=== PATIENT | female | born 1950 | race Caucasian/White ===

== ENCOUNTER 2017-01-27 05:57 | Day surgery (SDC) | payer OTHER ==
[~2017-01-27] VITALS: Ht 158.8 cm; Wt 74.5 kg
[2017-01-27] VITALS (18 sets, daily range): BP systolic 79–160; BP diastolic 45–74; PULSE 53–69; RESP 12–23; TEMP 97.3–98.1; O2SAT 93–100; Ht 158.8 cm; Wt 74.5 kg
[~2017-01-27 05:57] MED LIST: ACET-732 PO; AMLO5TAB4 PO; ASPI-558 PO; CALC-586 PO; CETI10TA56 PO; FISH1CAP29 PO; LOSA100T44 PO; MELO7.5T12 PO; MULT-806 PO; NIAC500T74 PO; PITA2TAB PO; UBID100T7 PO
--- OUTSIDE RECORDS SUMMARY | 2017-01-27 06:07 | XMS REPORT | Continuity of Care Document ---
Author Author [facility] Organization [facility] Address Unknown Phone Unavailable Support Name Relationship Address Phone PEPE GIVENS Next Of Kin [address] [place] [address] Unavailable Insurance Providers Payer Name Policy Number Subscriber Name Relationship [employer] [id number] Carie Givens 20 Self Problems No Known Problems or Medical conditions. Family History History Response Recorded Date/Time HX Cerebrovascular Accident N 05/20/13 8:20pm Hx Seizures N 05/20/13 8:20pm Hx Angina N 08/01/10 11:00am Hx Congestive Heart Failure N 05/20/13 8:20pm Hx Heart Attack N 05/20/13 8:20pm Hx Hypertension Y 05/20/13 8:20pm Hx Rheumatic Fever N 08/01/10 11:00am Hx Chronic Obstructive Pulmonary Disease (COPD) N 05/20/13 8:20pm Hx Diabetes N 05/20/13 8:20pm Hx Cancer N 05/20/13 8:20pm Hx MRSA N 05/20/13 8:20pm HX of Reproductive Surgeries Y C-SEC; LUX/BSO/APPY 05/20/13 8:20pm HX of Genitourinary Surgeries Y SEVERAL CYSTO'S; SLT 05/20/13 8:20pm Social History History Response Recorded Date/Time Smoking Status Never smoker 05/20/13 8:20pm Hx Substance Use N 08/01/10 11:00am Hx Alcohol Use N 08/01/10 11:00am Allergies, Adverse Reactions, Alerts Allergen Type Severity Reaction Last Updated rosuvastatin calcium Adverse Reaction Mild ACHING 06/28/09 simvastatin Allergy 05/18/13 Medications Medication Dose Units Route Sig Qty Days Estradiol (Climara 0.1 Mg) 1 Patch.wk TD Acetaminophen (Tylenol) 1 - 2 Tab PO PRN Aspirin (Aspir 81) 81 Mg PO DAILY Losartan Potassium 50 Mg PO DAILY Pitavastatin Calcium (Livalo) 2 Mg PO HS Cetirizine Hcl (Zyrtec) 5 Mg PO PRN Calcium Carbonate/Vitamin D3 (Calcium + D 600 Mg Tablet) 1 Tab PO DAILY Fish Oil/[place]-3 Fatty Acids (Fish Oil 1,000 Mg Capsule) 2 Cap PO BID Multivitamins (Multivitamin) 1 Tab PO DAILY Ubidecarenone (Co Q-10) 100 Mg PO BID Niacin 500 Mg PO DAILY Pravastatin Sodium 20 Mg PO DAILY Losartan Potassium (Cozaar) 25 Mg PO DAILY Immunizations Name Given Type Hx Influenza Vaccination Y 10/12 H Hx Pneumococcal Vaccination N H Response Recorded Date/Time Status not known Unknown Results Test Date Result Interp. Ref. Range Alanine Aminotransferase (ALT/SGPT) June 03, 2013 8:15am 29 U/L N 9-52 Albumin June 03, 2013 8:15am 4.1 G/DL N 3.5-5.0 Albumin/Globulin Ratio June 03, 2013 8:15am 1.3 RATIO N 1.1-2.2 Alkaline Phosphatase June 03, 2013 8:15am 57 U/L N 38-126 Anion Gap June 03, 2013 8:15am 14 MEQ/L N 5-15 Aspartate Amino Transf (AST/SGOT) June 03, 2013 8:15am 23 U/L N 14-36 BUN/Creatinine Ratio June 03, 2013 8:15am 17 RATIO N 6-26 Basophils # (Auto) May 22, 2013 8:25am 0.1 T/MM3 N 0-0.2 Basophils (%) (Auto) May 22, 2013 8:25am 0.7 % N 0-2 Blood Urea Nitrogen June 03, 2013 8:15am 15.0 MG/DL N 7-17 C-Reactive Protein June 03, 2013 8:15am 7.4 MG/L N 0-9 Calcium Level June 03, 2013 8:15am 9.4 MG/DL N 8.4-10.2 Calculated Osmolality June 03, 2013 8:15am 278 MOSM/KG N 261-280 Carbon Dioxide Level June 03, 2013 8:15am 25 MEQ/L N 22-30 Chloride Level June 03, 2013 8:15am 104 MEQ/L N 98-107 Creatinine June 03, 2013 8:15am 0.9 MG/DL N 0.7-1.2 Eosinophils # (Auto) May 22, 2013 8:25am 0.2 T/MM3 N 0-0.5 Eosinophils # (Manual) June 03, 2013 8:15am 0.1 T/MM3 N 0-0.5 Eosinophils % (Manual) June 03, 2013 8:15am 1.0 % N 0-4 Eosinophils (%) (Auto) May 22, 2013 8:25am 2.8 % N 0-4 Erythrocyte Sedimentation Rate June 03, 2013 8:15am 17 MM/HR N 0-20 Globulin June 03, 2013 8:15am 3.2 G/DL N 2.4-3.6 Glomerular Filtration Rate Calc June 03, 2013 8:15am 64 - Glucose Level June 03, 2013 8:15am 134 MG/DL H 65-110 Hematocrit June 03, 2013 8:15am 38.6 % N 36-46 Hemoglobin June 03, 2013 8:15am 12.7 GM/DL N 12-16 Immature Granulocyte # (Auto) May 22, 2013 8:25am 0.00 T/MM3 N 0.00-0.03 Immature Granulocyte % (Auto) May 22, 2013 8:25am 0.0 % N 0.0-0.5 Lymphocytes # (Auto) May 22, 2013 8:25am 1.4 T/MM3 N 1-4.8 Lymphocytes # (Manual) June 03, 2013 8:15am 1.3 T/MM3 N 1-4.8 Lymphocytes % (Manual) June 03, 2013 8:15am 21.0 % L 23-45 Lymphocytes (%) (Auto) May 22, 2013 8:25am 20.3 % L 23-45 Mean Corpuscular Hemoglobin June 03, 2013 8:15am 28.5 UUG N 26-34 Mean Corpuscular Hemoglobin Concent June 03, 2013 8:15am 32.9 GM/DL N 31- 37 Mean Corpuscular Volume June 03, 2013 8:15am 86.7 UM3 N 80-100 Mean Platelet Volume June 03, 2013 8:15am 10.5 UM3 N 9.4-12.4 Monocytes # (Auto) May 22, 2013 8:25am 0.6 T/MM3 N 0-0.8 Monocytes # (Manual) June 03, 2013 8:15am 0.3 T/MM3 N 0-0.8 Monocytes % (Manual) June 03, 2013 8:15am 5.0 % N 0-9.0 Monocytes (%) (Auto) May 22, 2013 8:25am 8.3 % N 0-9.0 Neutrophils # (Auto) May 22, 2013 8:25am 4.6 T/MM3 N 1.8-7.7 Neutrophils # (Manual) June 03, 2013 8:15am 4.4 T/MM3 N 1.8-7.7 Neutrophils % (Manual) June 03, 2013 8:15am 73.0 % H 33-66 Neutrophils (%) (Auto) May 22, 2013 8:25am 67.9 % H 33-66 Platelet Count June 03, 2013 8:15am 352 T/MM3 N 130-400 Potassium Level June 03, 2013 8:15am 3.6 MEQ/L N 3.6-5 RDW Standard Deviation June 03, 2013 8:15am 39.6 FL N 36.9-50.2 Red Blood Count June 03, 2013 8:15am 4.45 M/MM3 N 4.00-5.20 Sodium Level June 03, 2013 8:15am 143 MEQ/L N 134-144 Total Bilirubin June 03, 2013 8:15am 0.40 MG/DL N 0.20-1.30 Total Protein June 03, 2013 8:15am 7.3 G/DL N 6.3-8.2 Urine Bacteria May 18, 2013 11:45am Trace H - Urine Bilirubin May 18, 2013 11:45am Negative - Urine Blood May 18, 2013 11:45am 1+ H - Urine Collection Type May 18, 2013 11:45am Voided-not cc-midstr - Urine Color May 18, 2013 11:45am Yellow - Urine Culture Indicated May 18, 2013 11:45am Cult not indicated - Urine Glucose (UA) May 18, 2013 11:45am Negative - Urine Ketones May 18, 2013 11:45am Negative - Urine Leukocyte Esterase May 18, 2013 11:45am Negative - Urine Nitrite May 18, 2013 11:45am Negative - Urine Protein May 18, 2013 11:45am Negative - Urine RBC May 18, 2013 11:45am 0-1 /HPF - Urine Specific [place] May 18, 2013 11:45am 1.005 L - Urine Squamous Epithelial Cells May 18, 2013 11:45am None seen - Urine Turbidity May 18, 2013 11:45am Clear - Urine Urobilinogen May 18, 2013 11:45am Normal EU/DL - Urine WBC May 18, 2013 11:45am None seen /HPF - Urine pH May 18, 2013 11:45am 7.0 - Vancomycin Level Trough May 31, 2013 8:10am 16.27 UG/ML N 15-20 White Blood Count June 03, 2013 8:15am 6.0 T/MM3 N 4.5-11.0 Procedures Procedure Code Date CYSTOSCOPY AND TREATMENT 36491 07/01/09 CYSTOSCOPY AND TREATMENT 32970 08/04/10 VENOUS CATHETERIZATION NEC 38.93 05/19/13 Blood Culture 05/18/13 Gram Stain 05/16/13 Encounters Encounter Location Date/Time Discharged Inpatient [facility] 05/18/13 9:52am
--- OUTSIDE RECORDS SUMMARY | 2017-01-27 06:07 | XMS REPORT | Continuity of Care Document ---
Author Author [facility] Organization [facility] Address Unknown Phone Unavailable Care Team Providers Care Seat Cover Cutter Name Role Phone MAY TREJO DO Primary Care Physician [phone] Insurance Providers Guarantor Carie Givens Address [address] [place] [address] Email [email or web address] [employer] [facility] Policy Number [id number] Subscriber's Name ThuanCarie Relationship 20 Self Effective Date 88 Chief Complaint and Reason for Visit Chief Complaint Skin Rash/Abscess/Injury Reason for Visit Cellulitis of right middle finger Problems Active Problems Medical Problem Onset Date Status Cellulitis of right middle finger Unknown Acute Medications Current Home Medications Medication Dose Units Route Directions Days Qty Instructions Start Date Acetaminophen (Tylenol) 500 Mg Tablet 1-2 Tab Oral As Needed 09/20 Amlodipine Besylate (Norvasc) 5 Mg Tablet 5 Mg Oral Daily Aspirin (Aspir 81) 81 Mg Tablet. 81 Mg Oral Daily 05/18/13 Calcium Carbonate/Vitamin D3 (Calcium + D 600 Mg Tablet) 1 Tab Tablet 1 Tab Oral Daily 08/04/10 Cetirizine Hcl (Zyrtec) 10 Mg Tablet 5 Mg Oral As Needed 08/04/10 Clindamycin Hcl 300 Mg Capsule 1 Cap Oral Four Times Daily 10 Days 40 Capsule TAKE WITH A FULL GLASS OF WATER TO AVOID ESOPHAGEAL IRRITATION. Estradiol (Climara 0.1 Mg) 1 Patch.wk Patch.tdwk 1 Patch.wk Transderm 05/18/13 Fish Oil/[place]-3 Fatty Acids (Fish Oil 1,000 Mg Capsule) 1 Cap Capsule 2 Cap Oral Twice A Day 08/01/10 Losartan Potassium 100 Mg Tablet 50 Mg Oral Daily 05/18/13 Meloxicam (Mobic) 7.5 Mg Tablet 10/02/16 Multivitamins (Multivitamin) 1 Tab Tablet 1 Tab Oral Daily Niacin 500 Mg Tablet 500 Mg Oral Daily 08/04/10 Pitavastatin Calcium (Livalo) 2 Mg Tablet 2 Mg Oral Bedtime 05/18 Ubidecarenone (Co Q-10) 100 Mg Capsule 100 Mg Oral Twice A Day Past Home Medications Medication Directions Ordered Status Ciprofloxacin Hcl (Cipro) 500 Mg Tablet, 500 Mg Oral Twice A Day 07/01/09 Discontinued Losartan Potassium (Cozaar) 25 Mg Tablet, 25 Mg Oral Daily 08/04/10 Discontinued Pravastatin Sodium 20 Mg Tablet, 20 Mg Oral Daily 08/04/10 Discontinued Red Yeast Rice Extract (Red Yeast Rice) 600 Mg Capsule, 600 Mg Oral Twice A Day 07/01/09 Discontinued Social History Social History Problem Response Recorded Date/Time Onset Date Status Chewing Tobacco Status No 11/09/2013 10:41am Not Applicable Not Applicable Hx Substance Use No 11/09/2013 10:41am Not Applicable Not Applicable Hx Alcohol Use No 11/09/2013 10:41am Not Applicable Not Applicable Has the pt used tobacco in the last 12 months No 11/09/2013 10:41am Not Applicable Not Applicable Hospital Discharge Instructions No hospital discharge instructions. Plan of Care Discharge Date 10/02/16 4:30pm Disposition 01 DISCHARGED HOME, SELF-CARE Condition at Discharge Stable Instructions/Education Provided Cellulitis Prescriptions See Medication Section Referrals MAY TREJO DO Address: [address] [place] [phone] Additional Instructions/Education Warm soaks to finger three times a day until healed. Follow up with Dr. Trejo on Wednesday if not improving. ER if worsening. Functional Status No functional status results. Allergies, Adverse Reactions, Alerts Allergen Type Severity Reaction Status Last Updated rosuvastatin calcium Adverse Reaction Mild ACHING Active 10/02/16 Simvastatin Allergy Unknown ITCHING Active 10/02/16 Immunizations Query Response on File Recorded Date/Time Hx Influenza Vaccination Y JUL 2013 11/09/13 10:41am Hx Pneumococcal Vaccination No 11/09/13 10:41am Hx Influenza Vaccination Y JUL 2013 11/09/13 10:41am Vital Signs Acute Vital Signs Vital Response Date/Time Temperature (Fahrenheit) 97.9 deg F (96.8 - 99.1) 10/02/2016 4:06pm Temperature (Calculated Celsius) 36.04468 degrees C (36.0 - 37.3) 10/02/2016 4:06pm Pulse Rate (adult) 70 bpm (60 - 100) 10/02/2016 4:06pm Respiratory Rate 14 breaths/min (10 - 20) 10/02/2016 4:06pm O2 Sat by Pulse Oximetry 96 % (90 - 100) 10/02/2016 4:06pm Blood Pressure 135/74 mm Hg 10/02/2016 4:06pm Height (Feet) 5 feet 10/02/2016 4:06pm Height (Inches) 2.00 inches 10/02/2016 4:06pm Weight (Kilograms) 76.200 kg 10/02/2016 4:06pm Body Mass Index (BMI) 30.0 10/02/2016 4:06pm Results No known relevant diagnostic tests, laboratory data and/or discharge summary. Procedures Procedure Status Date Provider(s) COMP SCREEN MAMMOGRAM ADD-ON Completed 08/10/16 BREAST TOMOSYNTHESIS BI Completed 08/10/16 [id number]"SCREENING MAMMOGRAPHY, PRODUCING DIRECT DIGITAL IMAGE Completed Encounters Encounter Location Arrival/Admit Date Discharge/Depart Date Attending Provider Departed Emergency Room [facility] 10/02/16 1:40pm 10/02/16 4: 30pm WINSOME PAZ APRN Registered Clinic [facility] 08/10/16 8:41am MICHELLE HERNANDEZ Recent Diagnosis
--- OUTSIDE RECORDS SUMMARY | 2017-01-27 06:07 | XMS REPORT | Continuity of Care Document ---
Author Author [facility] Organization [facility] Address Unknown Phone Unavailable Allergies Medications Problems Procedures Results Encounters ACCT No. Visit Date/Time Discharge Status Pt. Type Provider Facility Loc./Unit Complaint [id number] 11/29/2013 09:49:00 11/29/2013 23 :59:59 CLS Outpatient [id number] 10/10/2013 14:14:00 10/10/2013 23 :59:59 CLS Outpatient
[2017-01-27] MEDS: FLEET PHOSPHO-SODA 133 ML ENEMA RECTALLY PRN ×4 (06:21→07:14)
[2017-01-27] MEDS ORDERED: MIDAZOLAM 5mg/5ml INJECTION ONE (06:48)
[2017-01-27] MEDS ORDERED: FENTANYL 100mcg/2ml INJECTION ONE (06:48)
[2017-01-27] MEDS ORDERED: SALINE FLUSH 10ml SYRINGE ONE (06:49)
[2017-01-27] MEDS ORDERED: LIDOCAINE 1% (10mg/ml) 2ml SDV INJ ONE (07:00)
[2017-01-27] MEDS ORDERED: LR 1,000 ML IV SCH (07:00)
[2017-01-27] MEDS ORDERED: MIDAZOLAM 5mg/5ml INJECTION IV PRN (08:03)
[2017-01-27] MEDS ORDERED: FENTANYL 100mcg/2ml INJECTION IV PRN (08:03)
[2017-01-27] MEDS ORDERED: MIDAZOLAM 2mg/2ml INJECTION ONE (08:15)
--- NOTE | 2017-01-27 13:23 | OPNOTEF ---
DATE OF PROCEDURE: 01/27/2017 PHYSICIAN: Daryl Farrar DO PROCEDURE: Colonoscopy. INDICATION FOR PROCEDURE Colorectal cancer screening ASA CLASSIFICATION: 1 DESCRIPTION OF PROCEDURE Consent was signed and on the chart. Routine monitoring with ECG, continuous oximetry and noninvasive blood pressure was performed throughout the procedure and found to be within normal limits. IV sedation was performed with a total of 5 mg of Versed and 50 mcg of fentanyl. Prior to the procedure, the patient was brought to the endoscopy lab where a brief review of her medical history and physical exam was performed. The procedure was described to her and she was agreeable to continue. All questions were answered. She was given IV sedation and placed in left lateral decubitus position. A digital rectal exam was normal. The colonoscope was introduced through the anal verge and advanced to the cecum. Up reaching the cecum, careful inspection of the mucosa was performed. In the proximal ascending colon, there were three small polyps that were removed by cold forceps biopsy. The remainder of the ascending, transverse and descending colon was free of pathology. She did have some diverticula in the sigmoid colon; otherwise, normal. She tolerated the procedure well. There were no complications. IMPRESSION 1. Proximal ascending colon polyps x 3 - removed. 2. Diverticulosis of the sigmoid colon. RECOMMENDATION 1. Review the path report when available. 2. Repeat as indicated. MTDD
== END 2017-01-27 09:45 | disposition home or self-care (01) ==
LOC: NSC 05:57
PROVIDERS: ATTEND Internal Medicine
DX: Z12.11 Encounter for screening for malignant neoplasm of colon (principal); D12.2 Benign neoplasm of ascending colon; K57.30 Diverticulosis of large intestine without perforation or abscess without bleeding; I10 Essential (primary) hypertension; E78.4 Other hyperlipidemia; N28.9 Disorder of kidney and ureter, unspecified; Z79.1 Long term (current) use of non-steroidal anti-inflammatories (NSAID); Z79.82 Long term (current) use of aspirin; Z79.899 Other long term (current) drug therapy
CPT/HCPCS: 45380; J2250; J7120